=== PATIENT | male | born 1960 | race Caucasian/White ===

== ENCOUNTER 2020-06-19 12:23 | Day surgery (SDC) | payer OTHER, SELFPAY ==
[2020-06-19] VITALS (11 sets, daily range): BP systolic 113–150; BP diastolic 55–83; PULSE 53–73; RESP 13–20; TEMP 36.6; O2SAT 90–100; BMI 27.6
--- NOTE | 2020-06-19 12:28 | CA_ITS ---
APPROVED REPORT Child Care Sitter: Toya Mantilla RVT Laterality: Bilateral Study Quality: Good Indications: right carotid bruit Risk Factors Smoking Doppler Spectral Velocity Analysis ECA (R) 99.40/13.90 cm/s ECA (L) 115.50/18.20 cm/s dICA (R) 104.80/43.80 cm/s dICA (L) 95.20/33.10 cm/s Lefty (R) 88.80/26.70 cm/s Lefty (L) 88.80/27.80 cm/s pICA (R) 130.50/26.70 cm/s pICA (L) 78.10/25.70 cm/s dCCA (R) 95.20/20.30 cm/s dCCA (L) 100.50/23.50 cm/s pCCA (R) 104.80/18.20 cm/s pCCA (L) 99.40/15.00 cm/s Vert (R) 38.50/8.60 cm/s Vert (L) 52.40/11.80 cm/s ICA/CCA 1.37 ICA/CCA 0.95 Findings Study suggests less than 20% stenosis of the right internal cartoid artery. Study suggests less than 20% stenosis of the left internal cartoid artery. Antegrade flow seen bilateral vertebral arteries. Conclusion Study suggests less than 20% stenosis of the right internal cartoid artery. Study suggests less than 20% stenosis of the left internal cartoid artery. Antegrade flow seen bilateral vertebral arteries. Electronically signed by : El Hallman MD 06/19/2020 17:28:51
--- NOTE | 2020-06-19 12:43 | IR_ITS ---
APPROVED REPORT Patient Location: Inpatient President And Chief Operating Officer: NATALIE Mercado RT (R) PROCEDURES Left heart catheterization Left ventriculogram Selective coronary angiogram INDICATION Unstable angina Informed consent was obtained prior to the procedure. COMPLICATIONS None Estimated Blood Loss: less than 10 ml TECHNIQUE One percent lidocaine used to anesthetize the right anterior aspect of the wrist. The right radial artery was accessed via the Seldinger technique. A 6 [place] sheath was placed in the right radial artery. 2.5 mg of verapamil, 800 mcg of nitroglycerin, 1mg Lidocaine and 5000 U Heparin were given through the arterial sheath. The trap catheter was also used to perform left heart catheterization, left ventriculogram and selective coronary angiogram. At the end of the procedure the sheath was removed good hemostasis was achieved using Traclet band, patient was transferred to the postop holding area in stable condition. ANGIOGRAPHIC RESULTS The left main artery Normal The left anterior descending artery Is ostially normal and then has a proximal 40 to 50% concentric stenosis immediately adjacent to a moderate-sized first diagonal artery. The remaining LAD has mild 10% luminal irregularities the first diagonal artery is widely patent and moderate in size The circumflex artery Is nondominant has mild diffuse 10% luminal irregularities The right coronary artery Is a large dominant vessel and has a proximal concentric 40% stenosis with a mid vessel 20% stenosis The MAGDALENO ventriculogram reveals Normal 65% The left ventricular end-diastolic pressure 15 mmHg IMPRESSION Moderate proximal LAD disease as described above Mild to moderate proximal dominant right coronary disease as described above Normal ejection fraction Borderline elevated LVEDP PLAN 1. At this point patient is on no antianginal medication or disease modifying medicine. While these 2 lesions could potentially produce ischemia I do not feel it is appropriate to proceed with FFR of these vessels given patient's symptoms appear to mimic or suggest unstable angina. It is unlikely either these above stenoses are producing patient's unstable symptoms which were thought to be an ischemic myocardial process 2. Based on the angiographic findings I believe 2 antianginal medication should be started as well as daily baby aspirin and a high intensity statin 3. Bisoprolol 5 mg daily 4. Norvasc 2.5 mg p.o. daily 5. Lipitor 40 mg daily 6. Aspirin 81 mg daily 7. Prilosec 40 mg daily for peptic ulcer disease which is likely the etiology for patient's symptoms 8. Referral to GI for EGD given patient's smoking history and multiple chest symptoms. I suspect an esophageal ulcer or esophagitis accompanied by reflux. Because of patient's smoking history and other pathology may be possible 9. It is reasonable to proceed with exercise stress testing in the next month or so after patient has been on anti-anginal medications to determine if either lesion is producing myocardial ischemia. I am most concerned about the proximal LAD lesion and stress testing is reasonable. Ideally, patient should have an EGD prior to proceeding with cardiac stress testing 10. Recommend discontinuation of tobacco products 11. Risk factor modification Electronically signed by : Cas Sibley, 06/19/2020 13:52:14
[2020-06-19 13:42] LABS: Coronavirus 19 IgG Antibody Negative (Negative); Coronavirus 19 IgM Antibody Negative (Negative)
== END 2020-06-19 16:06 | disposition home or self-care (01) ==
LOC: CATHLAB 06-20 08:55
PROVIDERS: PCP Family Medicine; Visit Provider Internal Medicine
DX: I25.110 Atherosclerotic heart disease of native coronary artery with unstable angina pectoris (principal); F17.200 Nicotine dependence, unspecified, uncomplicated; K21.9 Gastro-esophageal reflux disease without esophagitis; R06.00 Dyspnea, unspecified; R09.89 Other specified symptoms and signs involving the circulatory and respiratory systems; Z82.49 Family history of ischemic heart disease and other diseases of the circulatory system; Z20.822 Contact with and (suspected) exposure to COVID-19
CPT/HCPCS: 86328; 93458; 93880; 99152; C1725; C1769; J1644; Q9967

== ENCOUNTER → 2021-03-18 12:22 | Outpatient (CLI) | payer OTHER, SELFPAY ==
--- NOTE | 2021-03-18 12:30 | XR_ITS ---
FINAL REPORT CLINICAL HISTORY: typical angina/dyspnea history of chest pain with 40% coronary blockage smoker FINDINGS: 2 views of the chest were obtained . The heart is normal in size. The mediastinum is within normal limits. The lungs are clear. There is no pneumothorax. Osseous structures are unremarkable. IMPRESSION: No acute cardiopulmonary process. Reviewed, Interpreted and Dictated by Patrick Germain III, MD Transcribed by Nathalia Smith Authenticated by Patrick Germain III, MD on 03/18/2021 03:09:52 PM [facility]
[2021-03-18 12:59] LABS: Basophils # 0.1 K/mm3 (0-0.2); Basophils % 0.9 % (0.1-2.0); Eosinophils # 0.5 K/mm3 (0.0-0.4); Eosinophils % 6.1 % (0.1-12.0); Hematocrit 44.7 % (42.0-52.0); Hemoglobin 14.4 g/dL (14.1-18.0); Lymphocytes # 2.6 K/mm3 (0.7-4.5); Lymphocytes % 32.7 % (10-50); Mean Corpuscular HGB Conc 32.1 g/dL (31.8-35.4); Mean Corpuscular Hemoglobin 32.1 pg (27.0-31.2); Mean Corpuscular Volume 99.8 fl (80-94); Mean Platelet Volume 8.3 fl (7.4-10.4); Monocytes # 0.5 K/mm3 (0.1-1.0); Monocytes % 6.3 % (1.7-9.3); Neutrophils # 4.2 K/mm3 (1.8-7.8); Neutrophils % 53.9 % (37.0-80.0); Platelet Count 290 K/mm3 (142-424); Red Blood Count 4.48 M/mm3 (4.60-6.20); Red Cell Distribution Width 13.6 % (11.5-17.5); White Blood Count 7.8 K/mm3 (4.8-10.8)
[2021-03-18 15:27] LABS: Alanine Aminotransferase 16 U/L (12-78); Albumin Level 4.2 g/dl (3.5-5.0); Alkaline Phosphatase 65 U/L (38-126); Anion Gap 8.1 mEq/L (5-15); Aspartate Amino Transferase 23 U/L (17-59); Bilirubin,Direct 0.2 mg/dl (0.0-0.4); Bilirubin,Indirect 0.2 mg/dL (0.0-0.9); Bilirubin,Total 0.4 mg/dl (0.2-1.3); Bilirubin,Unconjugated 0.2 mg/dL (0.0-1.1); Blood Urea Nitrogen 15 mg/dl (9-20); Calcium 9.4 mg/dl (8.4-10.2); Carbon Dioxide 32 mmol/L (22.0-30.0); Chloride 106 mmol/L (98-107); Chol/HDL Ratio 3.4 (1-3.5); Cholesterol 182 mg/dl (140-200); Estimated Glomerular Filt Rate 56 ml/min (>60); GFR (African American) 68 ML/MIN (>60); Glucose 103 mg/dl (74-100); HDL Cholesterol 54 mg/dl (40-60); Potassium 5.1 mmoL/L (3.5-5.1); Sodium 141 mmol/L (136-145); Total Protein,Serum 6.6 g/dl (6.3-8.2); Triglycerides 86 mg/dl (30-150); VLDL Cholesterol 17 mg/dL (0-40)
[2021-03-18 15:38] LABS: Direct LDL Cholesterol 109.74 mg/dL (100-129)
[2021-03-18 15:43] LABS: Free T4 (Free Thyroxine) 1.07 ng/dl (0.78-2.19)
[2021-03-18 15:56] LABS: Thyroid Stimulating Hormone 1.37 uIU/mL (0.465-4.68)
== END ==
PROVIDERS: PCP Family Medicine; Visit Provider Internal Medicine
DX: R06.00 Dyspnea, unspecified (principal); R07.9 Chest pain, unspecified; R09.89 Other specified symptoms and signs involving the circulatory and respiratory systems; I20.9 Angina pectoris, unspecified; R61 Generalized hyperhidrosis; K21.9 Gastro-esophageal reflux disease without esophagitis; F17.200 Nicotine dependence, unspecified, uncomplicated; Z82.49 Family history of ischemic heart disease and other diseases of the circulatory system
CPT/HCPCS: 36415; 71046; 80048; 80061; 80076; 84439; 84443; 85025

== ENCOUNTER → 2021-03-27 12:05 | Outpatient (CLI) | payer OTHER, SELFPAY ==
--- NOTE | 2021-03-27 | CA_ITS ---
APPROVED REPORT Exam: Pharmacologic Technologist: Obdulia Cohen, Ht: 5 ft 11 in Wt: 192 lbs BSA: 2.07 m2 HR: 53 bpm BP: 126/66 mmHg Rhythm: NSR, NSSTTW ABNORMALITIES Medical History Medications: Omeprazole,,,,, Asa,,,,, Atorvastatin,,,,, BisOPROLOL,,,,, Allergies: No known drug allergies Stress Test Details Test: LEXISCAN HR Resting HR: 51 bpm Max Heart Rate (APMHR): 160.449761 bpm Max HR Achieved: 87 bpm Target HR (85% APMHR): 136.206008 bpm % of APMHR: 54.38 Recovery HR: 60 bpm BP Resting BP: 126/66 mmHg Max BP: 150/79 mmHg Recovery BP: 135.0/72.0 mmHg ECG Resting ECG: NSR, NSSTTW ABNORMALITIES Clinical Reason for Termination: Completed Protocol Exercise duration: 04:02 min Highest Stage Achieved: Stress ECG Conclusion NO SYMPTOMS <1.[address] SEGMENT CHANGES Electronically signed by : Ty Faustin MD 03/27/2021 20:45:02
--- NOTE | 2021-03-27 12:07 | NM_ITS ---
APPROVED REPORT Exam: Nuclear Stress Test Indication: CAD, HYPERLIPIDEMIA,TOB USE, FM HX. C.P., SOB, PALPITATIONS, FATIGUE Patient Location: Outpatient Stress Tech: [facility] Tech:Addis Persaud NATALIE RT (R)(N)(M) Ht: 5 ft 11 in Wt: 190 lbs HR: 53 bpm BP: 126/66 mmHg BSA: 2.06 m2 BMI: 26.4 History: CAD, HYPERLIPIDEMIA,TOB USE, FM HX. C.P., SOB, PALPITATIONS, FATIGUE Procedure: Patient received a 0.4 mg of intravenous Lexiscan, resting heart rate 53 bpm, resting blood pressure 126/66 mmHg, with Lexiscan maximum heart rate achived was 87 bpm which is Less than 85 % of the maximum predicted heart rate and blood pressure was 150/79 mmHg. With Lexiscan, patient denied any complaint of chest pain. Electrocardiogram Resting electrocardiogram shows sinus rhythm, with Lexiscan there is less than 1.[address] segment depression noted from the baseline EKG. The EKG portion of the Lexiscan is nondiagnostic. Cardiac Stress and Resting SPECT Images: Cardiac Stress and Resting SPECT images were obtained using technetium 99m Myoview 29.8 mCi stress and 10.80 mCi at rest. Gated SPECT for analysis of segmental wall motion and calculation of the ejection fraction also done. Prone images were also obtained. Cardiac stress and resting SPECT images show reversible ischemia involving the apex, computer derived ejection fraction is 46% with no obvious regional wall motion abnormality, right ventricle is normal size and contractility. Conclusion: 1. The EKG portion of the Lexiscan is nondiagnostic. 2. Scintigraphic evidence of reversible ischemia involving the apex, computer derived ejection fraction 46% with no segmental wall motion abnormality, right ventricle is normal size and contractility. 3. Abnormal Lexiscan Myoview study. Electronically signed by : Ty Faustin MD 03/27/2021 20:57:12
--- NOTE | 2021-03-27 14:08 | CA_ITS ---
APPROVED REPORT EXAM: Comprehensive 2D, Doppler, and color-flow Echocardiogram Fur Plucker: CHERISE Forde, RVS Ht: 5 ft 11 in Wt: 192lbs BSA: 2.07 BP: 128/66 mmHg Indications: Chest Pain, Shortness of Breath, CAD, Hyperlipidemia, Hypertension/HDD, SMOKER 2D Dimensions IVSd 1.12 cm LVEF (Visual) 51.30 % PWd 0.95 cm LA Volume 48.90 mL LVDd 5.34 cm LA Volume Index 23.60 mL/m2 (M/F) 16-34 LVDs 3.93 cm LVOT 1.84 cm (M/F) 1.5-2.5 M-Mode Dimensions LA Diam 2.62 cm (1.9-4.0) Ao Diam 3.26 cm (2.0-3.7) EPSs 0.72 cm TAPSE 2.62 (<1.7) LV Diastology E Decel Time 150.00 (160-240 msec) E/A Ratio 2.04 MED E' 8.90 (< 7 cm/sec) MED A' 13.20 cm/s E'/MED E' Ratio 10.66 (>14) LAT E' 12.10 (<10 cm/sec) LAT A' 9.70 cm/s E/LAT E' Ratio 7.84 (>14) Aortic Valve LVOT Max 91.00 (70-110 cm/s) LVOT VTI 20.66 cm AoV Peak Asad. 105.00 (50-130 cm/s) AO Peak GR. 4.40 mmHg AO Mean GR. 2.70 (<5 mmHg) AO VTI 27.56 (18-25 cm) AMRIK (VTI) 1.99 (2.5-4.5 cm2) Mitral Valve MV A Velocity 47.00 (40-130 cm/s) E/A Ratio 2.04 MV Decel. Time 150.00 (160-240 ms) MV Mean Gr. 1.20 (<2mmHg) Pulmonary Valve PV Peak Velocity 86.00 (50-150 cm/s) NC End VMAX 95.00 cm/s Tricuspid Valve TR P. Velocity 225.00 cm/s RAP Estimate 10.00 mmHg RVSP 30.20 mmHg Left Ventricle Left atrium is mildly enlarged, left ventricle is normal size, visually estimated ejection fraction 55% with no obvious regional wall motion abnormality, diastolic parameters are within normal range. Right Ventricle Right atrium and right ventricle are mildly enlarged with normal contractility. Aortic Valve Aortic valve is minimally thickened and fibrosed, there is no aortic stenosis or aortic insufficiency. Mitral Valve Mitral valve is grossly normal, there is trace mitral regurgitation. Tricuspid Valve Tricuspid valve grossly normal, there is trace tricuspid regurgitation, calculated right ventricular systolic pressure 30 mmHg. Pulmonic Valve Pulmonic valve is poorly visualized. Great Vessels Aortic root is normal size. View vena cava normal size with normal inspiratory collapse. Pericardium No significant pericardial effusion noted. Conclusion 1. Normal left ventricular size, preserved left ventricular systolic function, visually estimated ejection fraction 55% with no regional wall motion abnormality, diastolic parameters are within normal range. 2. Trace mitral and tricuspid regurgitation, calculated right ventricular systolic pressure 35 mmHg. 3. No significant pericardial effusion noted. 4. Inferior vena cava normal size with normal inspiratory collapse. Electronically signed by : Ty Faustin MD 03/27/2021 21:15:06
== END ==
PROVIDERS: PCP Family Medicine; Visit Provider Internal Medicine
DX: R06.00 Dyspnea, unspecified (principal); R07.9 Chest pain, unspecified; I20.9 Angina pectoris, unspecified; R09.89 Other specified symptoms and signs involving the circulatory and respiratory systems; K21.9 Gastro-esophageal reflux disease without esophagitis; F17.200 Nicotine dependence, unspecified, uncomplicated; R61 Generalized hyperhidrosis; Z82.49 Family history of ischemic heart disease and other diseases of the circulatory system
CPT/HCPCS: 78452; 93017; 93306; A9502; J2785

== ENCOUNTER 2021-04-02 06:53 | Day surgery (SDC) | payer OTHER, SELFPAY ==
[2021-04-02] VITALS (13 sets, daily range): BP systolic 106–137; BP diastolic 50–72; PULSE 43–70; RESP 16–20; O2SAT 98–100; BMI 27.4
--- NOTE | 2021-04-02 07:06 | IR_ITS ---
APPROVED REPORT Patient Location: Outpatient PROCEDURES Left heart catheterization Left ventriculogram Selective coronary angiogram INDICATION Known coronary artery disease, Typical angina pectoris, Abnormal Myoview Informed consent was obtained prior to the procedure. COMPLICATIONS None Estimated Blood Loss: Less than 10 mls TECHNIQUE One percent lidocaine used to anesthetize the right anterior aspect of the wrist. The right radial artery was accessed via the Seldinger technique. A 6 [place] sheath was placed in the right radial artery. 2.5 mg of verapamil, 800 mcg of nitroglycerin, 1mg Lidocaine and 5000 U Heparin were given through the arterial sheath. The [place] catheter was also used to perform left heart catheterization, left ventriculogram and selective coronary angiogram. At the end of the procedure the sheath was removed good hemostasis was achieved using Traclet band, patient was transferred to the postop holding area in stable condition. ANGIOGRAPHIC RESULTS The left main artery Normal The left anterior descending artery Has a proximal concentric 40% stenosis followed by an additional mid vessel 30 to 40% stenosis along a tortuous bend The circumflex artery Is nondominant with mild 10% luminal irregularities The right coronary artery Is large and dominant with a concentric proximal 40% stenosis The MAGDALENO ventriculogram reveals Normal 65% The left ventricular end-diastolic pressure 25 mmHg IMPRESSION Coronary disease as described above which is unchanged angiographically from June 2020 Patient has elevated LVEDP which I believe is the likely etiology for the angina pectoris especially since the Myoview only demonstrated apical ischemia. Normal ejection fraction Moderate to severely elevated LVEDP PLAN 1. At this time I would like to pursue medical management and start patient on Lasix and Aldactone in order to decrease LVEDP. Ranexa 500 twice daily will also be started for angina. 2. Given the elevated LVEDP I am hesitant to perform FFR at this time and feel since his angiogram is unchanged and we have a treatable condition, moderate to severe diastolic dysfunction, we should try to maximize antianginal medications prior to performing FFR and possibly stenting relatively small calibered LAD. 3. If patient continues to have angina pectoris over the next couple of weeks I would like to bring him back and then perform FFR to both the LAD and the right coronary artery. I do believe diastolic dysfunction should be treated first to see if that explains his angina 4. LDL less than 55 to be achieved with high intensity statin 5. Physical therapy 6. Avoidance of tobacco products 7. Risk factor modification Electronically signed by : Cas Sibley MD 04/02/2021 10:10:52
[2021-04-02 07:14] LABS: Coronavirus 19, PCR Not Detected (NotDetected); Influenza A, PCR Not Detected (NotDetected); Influenza B, PCR Not Detected (NotDetected)
[2021-04-02 09:11] LABS: Chloride 104 mmol/L (98-107); Potassium 4.4 mmoL/L (3.5-5.1); Sodium 137 mmol/L (136-145)
[2021-04-02 09:13] LABS: Basophils # 0.1 K/mm3 (0-0.2); Basophils % 0.8 % (0.1-2.0); Eosinophils % 10.1 % (0.1-12.0); Hematocrit 46.4 % (42.0-52.0); Hemoglobin 14.9 g/dL (14.1-18.0); Lymphocytes # 3.1 K/mm3 (0.7-4.5); Mean Corpuscular HGB Conc 32.1 g/dL (31.8-35.4); Mean Corpuscular Hemoglobin 31.9 pg (27.0-31.2); Mean Corpuscular Volume 99.4 fl (80-94); Mean Platelet Volume 7.4 fl (7.4-10.4); Monocytes # 0.5 K/mm3 (0.1-1.0); Monocytes % 5.6 % (1.7-9.3); Neutrophils # 4.9 K/mm3 (1.8-7.8); Neutrophils % 51.5 % (37.0-80.0); Platelet Count 247 K/mm3 (142-424); Red Blood Count 4.67 M/mm3 (4.60-6.20); Red Cell Distribution Width 13.4 % (11.5-17.5); White Blood Count 9.6 K/mm3 (4.8-10.8)
[2021-04-02 09:14] LABS: Anion Gap 7.4 mEq/L (5-15); Blood Urea Nitrogen 17 mg/dl (9-20); Carbon Dioxide 30 mmol/L (22.0-30.0); Creatinine Clearance Estimated 83 mL/min (50-200); Estimated Glomerular Filt Rate 62 ml/min (>60); GFR (African American) 75 ML/MIN (>60)
[2021-04-02 09:15] LABS: Calcium 8.4 mg/dl (8.4-10.2); Glucose 100 mg/dl (74-100)
== END 2021-04-02 13:10 | disposition home or self-care (01) ==
LOC: CATHLAB 06:55
PROVIDERS: PCP Family Medicine; Visit Provider Internal Medicine
DX: I25.118 Atherosclerotic heart disease of native coronary artery with other forms of angina pectoris (principal); E78.2 Mixed hyperlipidemia; I10 Essential (primary) hypertension; R94.30 Abnormal result of cardiovascular function study, unspecified; F17.210 Nicotine dependence, cigarettes, uncomplicated; Z20.822 Contact with and (suspected) exposure to COVID-19
CPT/HCPCS: 80048; 85025; 93458; 99152; C1725; C1769; C9803; J1644; Q9967; U0003; U0005

== ENCOUNTER → 2021-04-16 13:57 | Outpatient (CLI) | payer OTHER, SELFPAY ==
[2021-04-16 15:23] LABS: Anion Gap 10.9 mEq/L (5-15); Blood Urea Nitrogen 25 mg/dl (9-20); Carbon Dioxide 28 mmol/L (22.0-30.0); Chloride 104 mmol/L (98-107); Estimated Glomerular Filt Rate 44 ml/min (>60); GFR (African American) 54 ML/MIN (>60); Glucose 75 mg/dl (74-100); Magnesium 1.7 mg/dl (1.6-2.3); Potassium 4.9 mmoL/L (3.5-5.1); Sodium 138 mmol/L (136-145)
[2021-04-26 14:14] LABS: 1,25 Dihydroxy Vitamin D 31 pg/mL (.); 1,25-Dihydroxy, Vitamin D-2 <10 pg/mL (.); 1,25-Dihydroxy, Vitamin D-3 31 pg/mL (.)
== END ==
PROVIDERS: Visit Provider Physician Assistant
DX: R06.00 Dyspnea, unspecified (principal); R09.89 Other specified symptoms and signs involving the circulatory and respiratory systems; R53.83 Other fatigue; K21.9 Gastro-esophageal reflux disease without esophagitis; F17.200 Nicotine dependence, unspecified, uncomplicated; Z82.49 Family history of ischemic heart disease and other diseases of the circulatory system
CPT/HCPCS: 36415; 80048; 82652; 83735

== ENCOUNTER → 2022-06-24 12:45 | Outpatient (CLI) | payer OTHER, SELFPAY ==
--- NOTE | 2022-06-24 12:51 | CA_ITS ---
FINAL REPORT TECHNIQUE: Multiple transverse and longitudinal images were performed of right the femoral-popliteal deep venous system with augmentation and compression maneuvers. CLINICAL HISTORY: edema s/p muscle injury FINDINGS: Right lower extremity duplex ultrasound demonstrates normal flow in the deep venous system. There is no abnormal echogenicity to suggest thrombus. There is normal compression and augmentation. IMPRESSION: No evidence of right DVT. Reviewed, Interpreted and Dictated by Zacarias Drummond MD Transcribed by Dayna Andrea Authenticated and . [facility]
== END ==
PROVIDERS: PCP Family Medicine; Visit Provider Internal Medicine
DX: R06.00 Dyspnea, unspecified (principal); R60.0 Localized edema; I25.118 Atherosclerotic heart disease of native coronary artery with other forms of angina pectoris; I10 Essential (primary) hypertension; E78.2 Mixed hyperlipidemia; G47.33 Obstructive sleep apnea (adult) (pediatric); K21.9 Gastro-esophageal reflux disease without esophagitis; F17.200 Nicotine dependence, unspecified, uncomplicated
CPT/HCPCS: 93971

== ENCOUNTER → 2022-07-09 09:29 | Outpatient (CLI) | payer OTHER, SELFPAY | PROVIDERS: PCP Family Medicine; Visit Provider Internal Medicine | DX: R06.00 Dyspnea, unspecified (principal); I25.118 Atherosclerotic heart disease of native coronary artery with other forms of angina pectoris; R60.9 Edema, unspecified; I10 Essential (primary) hypertension; K21.9 Gastro-esophageal reflux disease without esophagitis; E78.2 Mixed hyperlipidemia; F17.200 Nicotine dependence, unspecified, uncomplicated; G47.33 Obstructive sleep apnea (adult) (pediatric) | CPT/HCPCS: 93306 ==